=== PATIENT | female | born 2000 | race Caucasian/White ===

== ENCOUNTER 2019-12-22 13:27 | Emergency (ER) | payer OTHER ==
[~2019-12-22] VITALS: Ht 152.4 cm; Wt 50.0 kg
[2019-12-22] MEDS ORDERED: IBUPROFEN 800 MG TAB PO ONE (15:45)
[2019-12-22] MEDS ORDERED: MACR100C43 PO (16:16)
[2019-12-22 16:30] VITALS: BP 115/69
== END 2019-12-22 16:31 | disposition home or self-care (01) ==
LOC: M ED 13:27
DX: N94.6 Dysmenorrhea, unspecified (principal); N39.0 Urinary tract infection, site not specified; D64.9 Anemia, unspecified; M41.9 Scoliosis, unspecified; F17.200 Nicotine dependence, unspecified, uncomplicated; Z88.0 Allergy status to penicillin